=== PATIENT | female | born 1940 | race Caucasian/White ===

== ENCOUNTER 2019-02-04 10:15 | Day surgery (SDC) | payer MEDICARE, OTHER ==
[2019-02-04] VITALS (8 sets, daily range): BP systolic 133–161; BP diastolic 44–79
[~2019-02-04] VITALS: Ht 154.9 cm; Wt 54.3 kg
[~2019-02-04 10:15] MED LIST: ACET500C5 PO; ATOR20TA66 PO; CARV-49 PO; CLOP75TA15 PO; DOCU-28 PO; HYDR-3964 PO; LOSA25TA41 PO; TRAM50TA2 PO; VALS80TA32 PO
[2019-02-04] MEDS ORDERED: normal saline 1,000 ML IV SCH (10:45)
[2019-02-04] MEDS ORDERED: diphenhydrAMINE 25mg capsule PO PRN (10:45)
[2019-02-04] MEDS ORDERED: iohexol 350 MG/ML 50ML vial IV ONE (10:52)
[2019-02-04] MEDS ORDERED: LIDOcaine 1% (10mg/ml)w/preservative injection 20ml MDV ONE (10:52)
[2019-02-04] MEDS ORDERED: iohexol 350MG/ML 100ml bottle IV ONE (10:52)
[2019-02-04] MEDS ORDERED: midazolam 2 mg/2 ml injection ONE (10:52)
[2019-02-04] MEDS ORDERED: fentaNYL/PF 50MCG/1 ML 2ML syringe ONE (10:52)
[2019-02-04] MEDS ORDERED: TIOT18CA3 INH (11:00)
[2019-02-04] MEDS ORDERED: ZINC50TA60 PO (11:00)
[2019-02-04] MEDS ORDERED: OMEP20TA23 PO (11:00)
[2019-02-04] MEDS ORDERED: GLUC1CAP36 PO (11:00)
[2019-02-04] MEDS ORDERED: FURO-150 PO (11:00)
[2019-02-04] MEDS ORDERED: ASPI-611 PO (11:00)
[2019-02-04] MEDS ORDERED: FLUT1DIS11 INH (11:00)
[2019-02-04] MEDS ORDERED: ALB0.5UD IH (11:00)
[2019-02-04] MEDS ORDERED: AMIT10TA10 PO (11:00)
[2019-02-04] MEDS ORDERED: IBUP-2264 PO (11:00)
[2019-02-04] MEDS ORDERED: MELA10CA2 PO (11:00)
[2019-02-04 12:07] LABS: BASOPHILS # (AUTO) 0.1 X10'3 (0-0.2); EOSINOPHILS # (AUTO) 0.2 X10'3 (0-0.9); HEMOGLOBIN 12.2 g/dl (12.0-16.0); LYMPHOCYTES # (AUTO) 1.1 X10'3 (1.1-4.8); NEUTROPHILS # (AUTO) 3.3 X10'3 (1.8-7.7)
[2019-02-04 12:09] LABS: BASOPHILS % (AUTO) 1.1 % (0-1); EOSINOPHILS % (AUTO) 4.3 % (0-6); HEMATOCRIT 37.3 % (35.0-45.0); LYMPHOCYTES % (AUTO) 22.2 % (21-51); MEAN CORPUSCULAR HEMOGLOBIN 26.3 PG (27.0-31.0); MEAN CORPUSCULAR HGB CONC 32.8 g/dL (33.0-36.5); MEAN PLATELET VOLUME 11.3 FL (7.4-10.4); MONOCYTES # (AUTO) 0.3 X10'3 (0-0.9); MONOCYTES % (AUTO) 6.4 % (2-12); PLATELET COUNT 140 X10'3 (140-440); RED BLOOD COUNT 4.66 X10'6 (4.20-5.60); RED CELL DISTRIBUTION WIDTH 20.1 % (11.5-14.5)
[2019-02-04 12:13] LABS: ALBUMIN 3.1 G/DL (3.4-5.0); ANION GAP 6 (8-16); BLOOD UREA NITROGEN 30 MG/DL (7-18); BUN/CREATININE RATIO 24.4 (6.6-38.0); CHLORIDE 102 MMOL/L (99-107); CREATININE 1.23 MG/DL (0.40-0.90); GLUCOSE 117 MG/DL (70-104); MAGNESIUM 1.8 MG/DL (1.5-2.4); POTASSIUM 4.1 MMOL/L (3.5-5.1); SODIUM 136 MMOL/L (135-145); TOTAL CARBON DIOXIDE 28.4 MMOL/L (24-32); eGFR 42 ML/MIN
[2019-02-04] MEDS ORDERED: proCHLORperazine 10 MG/2 ml inj ONE (12:18)
[2019-02-04] MEDS ORDERED: furosemide 40mg/4ml inj ONE (12:54)
[2019-02-04] MEDS ORDERED: normal saline 1000ml 1,000 ML IV SCH (13:35)
== END 2019-02-04 16:20 | disposition home or self-care (01) ==
LOC: SSTAY O 10:15
PROVIDERS: ATTEND Internal Medicine Cardiovascular Disease
DX: I25.10 Atherosclerotic heart disease of native coronary artery without angina pectoris (principal); I50.9 Heart failure, unspecified; I42.0 Dilated cardiomyopathy; I73.9 Peripheral vascular disease, unspecified; E78.5 Hyperlipidemia, unspecified; F17.210 Nicotine dependence, cigarettes, uncomplicated; J44.9 Chronic obstructive pulmonary disease, unspecified; Z90.49 Acquired absence of other specified parts of digestive tract; Z90.710 Acquired absence of both cervix and uterus; Z98.890 Other specified postprocedural states; Z79.899 Other long term (current) drug therapy; Z88.8 Allergy status to other drugs, medicaments and biological substances
CPT/HCPCS: 36415; 80048; 83735; 85025; 85610; 93005; 93458; 99152; 99153; A6257; C1769; C1894; J0780; J1644; J1940; J2001; J2250; J3010; J7030; Q0163; Q9967; A4620

== ENCOUNTER 2020-05-17 05:17 | Day surgery (SDC) | payer MEDICARE, OTHER ==
[2020-05-10 14:53] LABS: BASOPHILS # (AUTO) 0.1 X10'3 (0-0.2); EOSINOPHILS # (AUTO) 0.3 X10'3 (0-0.9); EOSINOPHILS % (AUTO) 3.2 % (0-6); LYMPHOCYTES % (AUTO) 20.3 % (21-51); MEAN CORPUSCULAR HEMOGLOBIN 30.5 PG (27.0-31.0); MEAN CORPUSCULAR HGB CONC 34.1 g/dL (33.0-36.5); MEAN CORPUSCULAR VOLUME 89.7 FL (78-98); MEAN PLATELET VOLUME 10.1 FL (7.4-10.4); MONOCYTES # (AUTO) 0.7 X10'3 (0-0.9); MONOCYTES % (AUTO) 6.8 % (2-12); NEUTROPHILS # (AUTO) 6.7 X10'3 (1.8-7.7); NEUTROPHILS % (AUTO) 68.7 % (42-75); PRE OP HEMATOCRIT 44.3 % (35.0-45.0); PRE OP HEMOGLOBIN 15.1 g/dL (12.0-16.0); PRE OP PLATELET COUNT 216 X10'3 (140-440); RED BLOOD COUNT 4.94 X10'6 (4.20-5.60); RED CELL DISTRIBUTION WIDTH 13.6 % (11.5-14.5)
[2020-05-10 15:08] LABS: ALBUMIN 3.8 G/DL (3.4-5.0); ALBUMIN/GLOBULIN RATIO 0.7 (1.1-1.5); ALKALINE PHOSPHATASE 361 IU/L (46-116); BLOOD UREA NITROGEN 38 MG/DL (7-18); BUN/CREATININE RATIO 27.7 (6.6-38.0); CALCIUM 9.7 MG/DL (8.5-10.1); CHLORIDE 102 MMOL/L (99-107); CREATININE 1.37 MG/DL (0.40-0.90); PRE OP ALT 54 U/L (30-65); PRE OP ANION GAP 6 (8-16); PRE OP AST 40 U/L (10-37); PRE OP BILIRUB, TOTAL 0.8 MG/DL (0.0-1.0); PRE OP GLUCOSE 76 MG/DL (70-104); PRE OP POTASSIUM 4.1 MMOL/L (3.4-5.1); PRE OP SODIUM 139 MMOL/L (135-145); TOTAL CARBON DIOXIDE 31.1 MMOL/L (24-32); TOTAL PROTEIN 9.1 G/DL (6.4-8.2); eGFR 37 ML/MIN
[~2020-05-17] VITALS: Ht 154.9 cm; Wt 54.4 kg
[2020-05-17] VITALS (15 sets, daily range): BP systolic 133–167; BP diastolic 53–74
[~2020-05-17 05:17] MED LIST changes: -ACET500C5 PO; +AMIT10TA10 PO; +ASPI-611 PO; -CLOP75TA15 PO; -DOCU-28 PO; +FLUT1DIS11 INH; +FURO-150 PO; +GLUC1CAP36 PO; -HYDR-3964 PO; +MELA10CA2 PO; +OMEP20TA23 PO; +TIOT18CA3 INH; -TRAM50TA2 PO; -VALS80TA32 PO; +ringers solution, lacted 1,000 ML IV SCH
[2020-05-17] MEDS ORDERED: DOCUMENT DATE & TIME OF BETA-BLOCKER PO ONE (05:30)
[2020-05-17] MEDS ORDERED: famotidine 20mg tablet PO ONE (05:30)
[2020-05-17] MEDS ORDERED: cefazolin/dext.iso 2gm/50ml 50 ML IV ONE (06:00)
[2020-05-17] MEDS ORDERED: LIDOcaine 1% (10mg/ml) 2ml vial ONE (06:00)
[2020-05-17] MEDS ORDERED: LIDOcaine 1% 30ml preserv. free vial ONE (06:34)
[2020-05-17] MEDS ORDERED: BUPIVAcaine/PF 2.5 mg/ml (0.25%) 30ml vial ONE (06:34)
[2020-05-17] MEDS ORDERED: BUPIVACAINE liposomal/PF 13.3 MG/ML vial IM ONE (06:34)
[2020-05-17] MEDS ORDERED: BUPIVAcaine/PF 2.5mg/ml (0.25%) 10ml vial ONE (06:34)
[2020-05-17] MEDS: albuterol 2.5 MG/3 ML nebule NEB PRN ×2 (07:06→07:08)
[2020-05-17] MEDS ORDERED: ringers solution, lacted 1,000 ML IV SCH (07:28)
[2020-05-17] MEDS ORDERED: proCHLORperazine 10 MG/2 ml inj IV PRN (07:30)
[2020-05-17] MEDS ORDERED: meperidine/PF 25mg/ml syringe IV PRN ×3 (07:30)
[2020-05-17] MEDS ORDERED: acetaminophen 1,000mg/100ml IV 100 ML IV PRN (07:30)
[2020-05-17] MEDS ORDERED: ondansetron/PF 4mg/2ml inj IV PRN (07:30)
[2020-05-17] MEDS ORDERED: hydrALAZINE 20mg/ml inj. IV PRN (07:30)
[2020-05-17] MEDS ORDERED: labetalol 20mg/4ml (5mg/ml) syringe IV PRN (07:30)
[2020-05-17] MEDS ORDERED: HYDROmorphone inj. 0.5 MG/0.5 ML DISP.SYRIN IV PRN ×2 (07:30)
[2020-05-17] MEDS ORDERED: ondansetron/PF 4mg/2ml inj ONE ×2 (07:40→08:12)
[2020-05-17] MEDS ORDERED: sevoflurane 250ml liquid IH ONE (07:40)
[2020-05-17] MEDS ORDERED: neostigmine methylsulfate 1 MG/ML 10ml vial ONE (07:40)
[2020-05-17] MEDS ORDERED: glycopyrrolate 0.2mg/ml inj ONE (07:40)
[2020-05-17] MEDS ORDERED: fentaNYL/PF 50MCG/1 ML 2ML syringe ONE (07:46)
[2020-05-17] MEDS ORDERED: midazolam 2 mg/2 ml injection ONE (07:46)
[2020-05-17] MEDS ORDERED: LIDOcaine 4% LTA kit 4ml solution TP ONE (08:02)
[2020-05-17] MEDS ORDERED: dexamethasone sod phosphate 4mg/ml inj. ONE (08:12)
[2020-05-17] MEDS ORDERED: LIDOcaine 2% (20mg/ml) 5ml vial ONE (08:12)
[2020-05-17] MEDS ORDERED: rocuronium 10mg/ml inj IV ONE (08:12)
[2020-05-17] MEDS ORDERED: propofol inj 20 ML IV ONE (08:12)
--- NOTE | 2020-05-17 10:29 | NUR ---
Received from OR via EVIN, accompanied by Anesthesiologist DR AMAYA and report given by Anesthesiologist. PT DROWSY, DENEIS PAIN, ABDOMEN W/4 LAP SITES W/BANDAIDS CDI. Addendum: 05/17/20 at 1058 by Gaviota Desouza RN Amended: Links added.
[2020-05-17] MEDS ORDERED: oxyCODONE/APAP 5-325mg tablet PO PRN (10:35)
--- NOTE | 2020-05-17 13:59 | NUR ---
PT UP AND AMBULATES, TO BATHROOM A FEW TIMES, VOIDING SMALL AMTS, SCANNED BLADDER, SCAN SHOWS ONLY 36 ML URINE, UNABLE TO PALPATE BLADDER, PT GIVEN INSTRUCTIONS ON WATCHING HOW MUCH SHE IS ABLE TO VOID, AND INSTRUCTED TO CALL IF SHE HAS ANY CONCERNS OR SHE IS UNABLE TO VOID. D/C INSTRUCTIONS GIVEN AND GONE OVER W/PT WHO VERBALIZES UNDERSTANDING. PT D/CD TO HOME VIA W/C TO PRIVATE VEHICLE W/O INCIDENT. Addendum: 05/17/20 at 1453 by Gaviota Desouza RN Amended: Links added.
== END 2020-05-17 13:59 | disposition home or self-care (01) ==
LOC: PAS 05:17
PROVIDERS: ATTEND Surgery
DX: K43.0 Incisional hernia with obstruction, without gangrene (principal); J44.9 Chronic obstructive pulmonary disease, unspecified; I10 Essential (primary) hypertension; K21.9 Gastro-esophageal reflux disease without esophagitis; M19.90 Unspecified osteoarthritis, unspecified site; I42.9 Cardiomyopathy, unspecified; E11.9 Type 2 diabetes mellitus without complications; F17.210 Nicotine dependence, cigarettes, uncomplicated; Z88.5 Allergy status to narcotic agent; Z79.899 Other long term (current) drug therapy; Z79.82 Long term (current) use of aspirin; Z20.828 Contact with and (suspected) exposure to other viral communicable diseases; Z90.49 Acquired absence of other specified parts of digestive tract; Z98.890 Other specified postprocedural states; Z95.0 Presence of cardiac pacemaker; Z90.721 Acquired absence of ovaries, unilateral
CPT/HCPCS: 36415; 49655; 64488; 80053; 82948; 85025; 87635; 93005; C1758; C1781; C9290; J1100; J2001; J2175; J2250; J2405; J2704; J2710; J3010; J3490; J7120; A4215; A4618